=== PATIENT | female | born 1985 | race Caucasian/White ===

== ENCOUNTER 2017-02-15 04:13 | Emergency (ER) | payer OTHER ==
[2017-02-15] MEDS ORDERED: Ketorolac 60 MG/2 ML SDV IM ONE (05:04)
--- NOTE | 2017-02-15 05:11 | EDM.PDOC ---
ED HPI GENERAL MEDICAL PROBLEM - General Chief Complaint: Upper Extremity Injury/Pain Stated Complaint: L ARM PAIN Time Seen by Provider: 02/15/17 04:55 Source of Information: Reports: Patient, Old Records, RN History Limitations: Reports: No Limitations - History of Present Illness INITIAL COMMENTS - FREE TEXT/NARRATIVE: 31 yo non-smoking female presents with pain to the L shoulder area associated with deep breathing. Has a mild cough. Had chills last night. Denies any recent heavy lifting or injury to the shoulder area. No self tx. Was fine when she went to bed last night, awoke with her current sx's. Had a baby 5 mos ago. Onset: Today Onset Date: 02/15/17 Onset Time: 03:30 Duration: Minutes:, Constant Location: Reports: Chest (L shoulder area.) Quality: Reports: Sharp Severity: Moderate Improves with: Reports: Other (shallow breathing) Worsens with: Reports: Other (deep breathing) Context: Reports: Other (unknown) Associated Symptoms: Reports: Fever/Chills (no fever, chills are currently gone. 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 Denies: Diaphoresis, Fever Respiratory: Reports: Pleuritic Chest Pain, Cough (infrequent). Denies: Shortness of Breath, Wheezing, Sputum, Hemoptysis Cardiovascular: Reports: No Symptoms GI/Abdominal: Reports: No Symptoms Genitourinary: Reports: No Symptoms Musculoskeletal: Reports: Shoulder Pain (no increased pain with shoulder movement or palpation.). Denies: Neck Pain, Arm Pain, Joint Swelling, Muscle Pain Skin: Reports: No Symptoms Neurological: Reports: No Symptoms ED EXAM, GENERAL - Physical Exam Exam: See Below Exam Limited By: No Limitations General Appearance: Alert, WD/WN, No Apparent Distress Eye Exam: Bilateral Eye: Normal Inspection Ears: Normal External Exam, Normal Canal, Hearing Grossly Normal Ear Exam: Bilateral Ear: Auricle Normal, Canal Normal Nose: Normal Inspection, No Blood Throat/Mouth: Normal Inspection, Normal Lips, Normal Oropharynx, Normal Voice, No Airway Compromise Head: Atraumatic, Normocephalic Neck: Normal Inspection, Supple, Non-Tender, Full Range of Motion. No: Lymphadenopathy (R), Lymphadenopathy (L) Respiratory/Chest: No Respiratory Distress, Lungs Clear, Normal Breath Sounds, No Accessory Muscle Use Cardiovascular: Regular Rate, Rhythm, No Edema GI/Abdominal: Soft, Non-Tender, No Distention Back Exam: Normal Inspection. No: CVA Tenderness (R), CVA Tenderness (L) Extremities: Normal Inspection, Normal Range of Motion, Non-Tender, No Pedal Edema Neurological: Alert, Oriented, CN II-XII Intact, Normal Cognition, No Motor/ Sensory Deficits Psychiatric: Normal Affect, Normal Mood Skin Exam: Warm, Dry, Intact, Normal Color, No Rash Lymphatic: No Adenopathy Course - Vital Signs Text/Narrative:: Pain reduced significantly after Toradol. Last Recorded V/S: Last Vital Signs Temp 36.5 C 02/15/17 04:41 Pulse 60 02/15/17 04:41 Resp 17 02/15/17 04:41 BP 126/78 02/15/17 04:41 Pulse Ox 97 02/15/17 04:41 - Orders/Labs/Meds Orders: Active Orders 24 hr Category Date Time Status Chest 2V [CR] Stat Exams 02/15/17 05:04 Taken D-DIMER QUANTITATIVE [COAG] Stat Lab 02/15/17 05:05 Ordered Azithromycin [Zithromax] Med 02/15/17 06:27 Once 500 mg PO ONETIME ONE Labs: Laboratory Tests 02/15/17 Range/Units 05:25 WBC 12.4 H (4.5-11.0) K/uL RBC 5.18 (3.30-5.50) M/uL Hgb 15.0 (12.0-15.0) g/dL Hct 43.6 (36.0-48.0) % MCV 84 (80-98) fL MCH 29 (27-31) pg MCHC 34 (32-36) % Plt Count 303 (150-400) K/uL Meds: Medications Discontinued Medications Generic Name Dose Route Start Last Admin Trade Name Hongq PRN Reason Stop Dose Admin Ketorolac Tromethamine 60 mg 02/15/17 05:04 02/15/17 05:15 Toradol IM 02/15/17 05:05 60 mg ONETIME ONE Administration - Radiology Interpretation Free Text/Narrative:: CXR-negative Departure - Departure Time of Disposition: 06:40 Disposition: Home, Self-Care 01 Condition: Fair Clinical Impression: Pleuritic chest pain Leukocytosis Qualifiers: Leukocytosis type: unspecified Qualified Code(s): D72.829 - Elevated white blood cell count, unspecified - Discharge Information Referrals: PCP,None [Primary Care Provider] - Forms: ED Department Discharge - My Orders Last 24 Hours: My Active Orders 02/15/17 05:04 Chest 2V [CR] Stat 02/15/17 05:05 D-DIMER QUANTITATIVE [COAG] Stat 02/15/17 06:27 Azithromycin [Zithromax] 500 mg PO ONETIME ONE - Assessment/Plan Last 24 Hours: My Active Orders 02/15/17 05:04 Chest 2V [CR] Stat 02/15/17 05:05 D-DIMER QUANTITATIVE [COAG] Stat 02/15/17 06:27 Azithromycin [Zithromax] 500 mg PO ONETIME ONE
[2017-02-15] MEDS ORDERED: Azithromycin 250 MG Tab PO ONE (06:27)
--- NOTE | 2017-02-16 09:38 | CR ---
Chest 2V HISTORY: Chest pain COMPARISON: None FINDINGS: Cardiac size and pulmonary vessels normal. There are no infiltrates or effusions. No pneumo thorax. The osseous structures appear normal. IMPRESSION: No acute pulmonary disease.
== END 2017-02-15 06:44 | disposition home or self-care (01) ==
LOC: JP.ED 04:13
DX: R07.1 Chest pain on breathing (principal); D72.829 Elevated white blood cell count, unspecified; Z88.0 Allergy status to penicillin; Z88.2 Allergy status to sulfonamides
CPT/HCPCS: 36415; 71020; 85027; 85379; 96372; 99284; A9270; J1885